=== PATIENT | female | born 1965 | race Caucasian/White ===

== ENCOUNTER 2018-09-17 18:28 | Emergency (ER) | payer OTHER ==
[2018-09-17] MEDS: IBUPROFEN 600 MG TAB PO (19:18)
== END 2018-09-17 19:45 | disposition home or self-care (01) ==
LOC: FTE 18:28
DX: J02.9 Acute pharyngitis, unspecified (principal); R07.9 Chest pain, unspecified
CPT/HCPCS: 93005; 99283-25